=== PATIENT | male | born 1950 | race Caucasian/White ===

== ENCOUNTER 2024-10-11 07:24 | Day surgery (SDC) | payer MEDICARE, SELFPAY ==
[2024-09-17 10:37] VITALS: BMI 32.4
[2024-10-11] VITALS (14 sets, daily range): BP systolic 115–170; BP diastolic 44–101
[2024-10-11 09:57] LABS: ACT-LR - POC 255 Seconds (116-155)
[2024-10-11 10:27] LABS: ACT-LR - POC 311 Seconds (116-155)
[2024-10-11 10:55] LABS: ACT-LR - POC 281 Seconds (116-155)
[2024-10-11 11:21] LABS: ACT-LR - POC 310 Seconds (116-155)
[2024-10-11 11:51] LABS: ACT-LR - POC 327 Seconds (116-155)
[2024-10-11 12:35] LABS: Glucose - Point of Care 140 mg/dl (70-99)
[2024-10-11] MEDS: DIOVAN 320 MG PO (12:58)
[2024-10-11] MEDS: PROCARDIA XL (EXTENDED RELEASE) 60 MG PO (12:59)
--- NOTE | 2024-10-11 16:09 | W.PN.UPDATE ---
Update Note
Progress Note Update
74 yo WM s/p PCI LADx 2 MATTHEW (same day). He denies cp, sob, chai diet, voiding, amb w/o dizziness, EKG SR no ST changes, R rad site c/d/i no HT. He will be on DAPT ASA/Plavix. He will continue rosuvastatin 10mg with Lopid 600mg as he has history of
familial hypertriglyceridemia. Cardiac rehab c/s. He will f/u [facility] in 2 weeks. He is for d/c home after 6pm.
--- NOTE | 2024-10-11 19:51 | ITS.CL.PN ---
[facility] - Procedure Note
Procedure
Procedure Note:
CARDIAC CATHETERIZATION REPORT
Date of Procedure: 10/11/2024
Referring: Dr. Antonio Barreto MD
Indication: positive cardiac stress test, severe coronary artery disease in a patient undergoing renal transplant evaluation
PROCEDURE(S)
1. left heart catheterization
2. coronary angiography
3. IVUS of LAD
4. PCI with stent to LAD
5. unsuccessful RAYON WINDER PCI of OM1
ACCESS: 7F right radial artery (closure: radial band)
CATHETER: 7F EBU 3.75 guide
MODERATE SEDATION: 120 minutes of moderate sedation was utilized. An independent medical corps officer was present to assist with and help manage the patient's level of consciousness and physiologic status.
ULTRASOUND GUIDED VASCULAR ACCESS (right radial): Ultrasound was utilized for vascular access. The vessel was visualized under ultrasound and noted to be patent. An image of the vessel was stored permanently in the patient's medical record. Under
direct ultrasound guidance, vascular access was obtained using a modified Seldinger technique and a 7 [place] sheath was placed.
HEMODYNAMIC DATA
LV 182/13 (EDP 25) mmHg
AO 186/76 (mean 121) mmHg
CORONARY ANGIOGRAPHY
Dominance: co-dominant
LM: large, normal
LAD: large vessel giving rise to a large branching D1. There is severe ~80% calcific disease extending from just after the takeoff of D1 distally to the mid-LAD. There is an ostial/proximal ~60% stenosis in D1. There is otherwise mild CAD.
LCx: large vessel giving rise to a moderate caliber OM1, small OM2, small OM3, moderate caliber LPL, and moderate caliber LPDA branch. There is a RAYON WINDER of the OM1 with slow retrograde filling via L-L collaterals. These do not appears to be sufficient
collaterals for retrograde RAYON WINDER PCI. The RAYON WINDER segment appears to be long but relatively straight with a tapered proximal cap. There is no evidence of severe calcification in the RAYON WINDER.
RCA: known to be a RAYON WINDER proximally and not selectively intubated. There are L-R collaterals from the LAD supplying the RCA, which is likely a co- or non-dominant vessel.
IVUS-guided PCI with stent to LAD
Heparin was used for anticoagulation to achieve ACT>300. The left main was engaged with a EBU 3.75 guide catheter and angiography performed as described above. A Runthrough coronary wire was placed in the LAD and a BMW coronary wire placed in the
diagonal. Initial lesion preparation was performed in the LAD with a 2.5x12 semicompliant balloon followed by a 3.0x12 mm NC balloon with full expansion noted. IVUS was performed and demonstrated a 3.25 mm distal reference vessel and 3.75 mm
proximal reference vessel diameter. There was also suggestion of more severe proximal LAD disease not appreciated angiographically due to overlap with the LCx. The LAD was stented with a 3.25x38 mm [place] MATTHEW. The jailed diagonal wire was
removed and rewired through stent struts. Post-dilation was performed with a 3.25x12 mm NC taken to high pressure distally, and a 3.75x12 mm NC taken to high pressure for POT. At this point, the D1 was noted to have worsened angiographic ostial
pinching and some haziness at the ostium suggesting unstable plaque, although RELL 3 flow. The decision was made to perform balloon angioplasty of the diagonal branch with a 2.0x12 mm compliant balloon through stent struts. After this, the
appearance of the ostial diagonal branch was significantly improved. More cranial projections demonstrated the proximal LAD also be significantly diseased (as demonstrated by IVUS). Overlapping proximal stenting was thus performed with a 3.5x18 mm
[place] MATTHEW. Post-dilation was performed of the overlap with the 3.75 mm NC balloon to high pressure, and with a 4.5 mm NC balloon to the proximal stent edge to high pressure. Final angiographic result was outstanding. Final IVUS demonstrated
full stent apposition and expansion with appropriate sizing. There was no evidence of under expansion or edge dissection. The appearance of the ostial diagonal was acceptable with RELL 3 flow. At this point, our attention turned to the LCx.
Unsuccessful RAYON WINDER PCI of OM1
The Runthrough wire was placed in the LPL branch for protection and support. Using a 7F Guideliner and a Whisper wire supported by a Turnpike LP microcatheter, the proximal cap of the RAYON WINDER was able to be engaged but not traversed. An antegrade wire
escalation strategy was used with significant attempts made with the Whisper wire, a Fielder XT, and Substation Mechanic 200 without ability to advance to the distal cap due to wire buckling despite many attempts at wire reorientation, reshaping, and various
degrees of microcatheter support. Given that higher tip load wires or dissection re-entry approaches would be of significantly higher risk, we elected to stop the procedure.
RADIATION: dose 2543 mGy; DAP 143 Gy*cm2; fluoroscopy time 46.7 min
CONCLUSIONS
1. successful IVUS-guided PCI of the proximal to mid LAD with placement of overlapping 3.0x38 and 3.5x18 mm MATTHEW, post-dilated to 3.25 mm distally and 4.5 mm proximally. Bailout POBA of the diagonal branch was performed with excellent result.
2. unsuccessful RAYON WINDER PCI of the OM1 using an antegrade wire escalation strategy
3. elevated LV filling pressure in the setting of systemic hypertension, and no aortic stenosis
RECOMMENDATIONS
1. expectant management after cardiac catheterization via 7F right radial approach
2. aggressive secondary prevention of coronary artery disease
3. DAPT with ASA/Plavix for 6 months, followed by ASA indefinitely
4. Regarding pre-operative risk ahead of possible renal transplantation: The substantial portion of the patient's myocardium at risk has now been revascularized. He still has a RAYON WINDER of a small co- or non-dominant RCA as well as an OM1 branch of the
LCx. The OM1 RAYON WINDER may be the hearse driver of his positive stress test. However, the RCA and OM1 CTOs do not appear to be of major clinical significance given the patient's normal LV function on echo without regional wall motion abnormalities in these
territories. He has no anginal symptoms with activity or dialysis. Further treatment of his CAD - that is, reattempts at the OM1 RAYON WINDER with more aggressive antegrade wire escalation techniques or dissection re-entry - are not expected to improve the
patient's risk of freya-operative MACE for a moderate risk surgery (renal transplant) or have any impact on ASCVD event reduction generally. He is at acceptable cardiac risk to undergo renal transplant without further cardiovascular testing. If
reassessment of CV risk must be performed down the line, stress testing will likely not be informative given known CTOs. Instead, repeat invasive cath may be performed to demonstrate disease stability.
Copy to: Dr. Antonio Barreto MD (transplant cull grader); Dr. Jean Paul Judge MD, PhD (CT Surgery); Dr. Addy Marrero MD (PCP)
Signed: Shakeel Augustin MD, PhD
== END 2024-10-11 17:55 | disposition home or self-care (01) ==
LOC: CATH 07:24
PROVIDERS: ATTENDING PHYSICIAN Student in an Organized Health Care Education/Training Program; FAMILY PHYSICIAN Family Medicine
DX: I25.10 Atherosclerotic heart disease of native coronary artery without angina pectoris (principal); I25.84 Coronary atherosclerosis due to calcified coronary lesion; I25.82 Chronic total occlusion of coronary artery; I12.0 Hypertensive chronic kidney disease with stage 5 chronic kidney disease or end stage renal disease; E78.1 Pure hyperglyceridemia; I45.10 Unspecified right bundle-branch block; G47.33 Obstructive sleep apnea (adult) (pediatric); Z99.2 Dependence on renal dialysis; N18.6 End stage renal disease; E11.22 Type 2 diabetes mellitus with diabetic chronic kidney disease; Z79.4 Long term (current) use of insulin; Z87.19 Personal history of other diseases of the digestive system; R26.2 Difficulty in walking, not elsewhere classified; Z85.46 Personal history of malignant neoplasm of prostate; Z90.79 Acquired absence of other genital organ(s); M19.90 Unspecified osteoarthritis, unspecified site; Z96.652 Presence of left artificial knee joint; E03.9 Hypothyroidism, unspecified; F41.9 Anxiety disorder, unspecified; F32.A Depression, unspecified; E66.9 Obesity, unspecified; Z68.32 Body mass index [BMI] 32.0-32.9, adult; K04.7 Periapical abscess without sinus; Z79.899 Other long term (current) drug therapy; Z79.82 Long term (current) use of aspirin; Z79.890 Hormone replacement therapy; F17.210 Nicotine dependence, cigarettes, uncomplicated; Z79.02 Long term (current) use of antithrombotics/antiplatelets
CPT/HCPCS: 99152; 99153; 82962; 85347; 92921; 92978; 93005; 93458; C1725; C1753; C1769; C1874; C1887; C1894; C9600; Q9967

== ENCOUNTER 2025-09-24 06:59 | Outpatient (RCR) | payer MEDICARE, SELFPAY | END 2025-09-24 23:59 | disposition home or self-care (01) | LOC: RPT 06:59 | PROVIDERS: ATTENDING PHYSICIAN Neurological Surgery; FAMILY PHYSICIAN Family Medicine | DX: Z47.89 Encounter for other orthopedic aftercare (principal); Z73.6 Limitation of activities due to disability; R26.2 Difficulty in walking, not elsewhere classified; M62.81 Muscle weakness (generalized); R26.89 Other abnormalities of gait and mobility; M43.24 Fusion of spine, thoracic region; M43.22 Fusion of spine, cervical region | CPT/HCPCS: 97110; 97163; 97530 ==